=== PATIENT | male | born 1950 | race Caucasian/White ===

== ENCOUNTER 2022-04-11 18:03 | Inpatient (IN) | payer MEDICARE, OTHER ==
[~2022-04-11] VITALS: Ht 193 cm; Wt 118.2 kg
[2022-04-11 18:59] LABS: BASOPHILS # (AUTO) 0.1 X10'3 (0-0.2); BASOPHILS % (AUTO) 0.8 % (0-1); EOSINOPHILS # (AUTO) 0.2 X10'3 (0-0.9); EOSINOPHILS % (AUTO) 1.5 % (0-6); HEMATOCRIT 42.6 % (42.0-52.0); HEMOGLOBIN 14.5 g/dl (14.0-17.9); LYMPHOCYTES # (AUTO) 1.6 X10'3 (1.1-4.8); LYMPHOCYTES % (AUTO) 14.4 % (21-51); MEAN CORPUSCULAR HEMOGLOBIN 29.2 PG (27.0-31.0); MEAN CORPUSCULAR VOLUME 85.9 FL (78-98); MEAN PLATELET VOLUME 9.1 FL (7.4-10.4); MONOCYTES # (AUTO) 0.9 X10'3 (0-0.9); MONOCYTES % (AUTO) 7.8 % (2-12); NEUTROPHILS # (AUTO) 8.5 X10'3 (1.8-7.7); NEUTROPHILS % (AUTO) 75.5 % (42-75); PLATELET COUNT 219 X10'3 (140-440); RED BLOOD COUNT 4.95 X10'6 (4.70-6.10); RED CELL DISTRIBUTION WIDTH 13.6 % (11.5-14.5); WHITE BLOOD COUNT 11.2 X10'3 (4.5-11.0)
[2022-04-11 19:12] LABS: ALANINE AMINOTRANSFERASE 19 U/L (12-78); ALBUMIN 3.1 G/DL (3.4-5.0); ALBUMIN/GLOBULIN RATIO 0.7 (1.1-1.5); ALKALINE PHOSPHATASE 84 IU/L (46-116); ANION GAP 8 (8-16); ASPARTATE AMINO TRANSFERASE 21 U/L (10-37); BILIRUBIN,TOTAL 0.5 MG/DL (0.1-1.0); BLOOD UREA NITROGEN 29 MG/DL (7-18); BUN/CREATININE RATIO 14.7 (5.4-32.0); CALCIUM 8.9 MG/DL (8.5-10.1); CHLORIDE 103 MMOL/L (99-107); CREATININE 1.97 MG/DL (0.60-1.10); GLUCOSE 181 MG/DL (70-104); MAGNESIUM 2.1 MG/DL (1.5-2.4); POTASSIUM 4.1 MMOL/L (3.5-5.1); SODIUM 134 MMOL/L (135-145); TOTAL CARBON DIOXIDE 22.8 MMOL/L (24-32); TOTAL PROTEIN 7.7 G/DL (6.4-8.2); eGFR 34 ML/MIN
--- NOTE | 2022-04-11 20:41 | NUR ---
patient left and came back. See Prior Triage.
[2022-04-12] MEDS ORDERED: normal saline 1000ML IV soln IVB ONE (01:00)
[2022-04-12] MEDS ORDERED: normal saline 1000ml 1,000 ML IV ONE (01:00)
[2022-04-12] MEDS ORDERED: heparin 10,000 units/1 ML INJ IV ONE ×2 (01:05→02:00)
[2022-04-12] MEDS ORDERED: heparin 25,000 UNIT/250ml bag 250 ML IV SCH ×2 (01:05→11:40)
[2022-04-12] MEDS ORDERED: vancomycin/NS 1 GM ADD-VANTAGE 250 ML IV ONE (01:05)
[2022-04-12 01:38] LABS: APTT 31 SECONDS (22-32)
[2022-04-12 01:50] LABS: MAGNESIUM 2.2 MG/DL (1.5-2.4)
[2022-04-12] MEDS ORDERED: heparin 10,000 units/1 ML INJ IV PRN ×2 (02:00→11:40)
[2022-04-12] MEDS: heparin 25,000 UNIT/250ml bag 250 ML IV SCH ×2 (02:26→15:27)
[2022-04-12] MEDS ORDERED: diphenhydrAMINE 25mg capsule PO PRN (05:05)
[2022-04-12] MEDS ORDERED: normal saline 1000ml 1,000 ML IV SCH (05:05)
[2022-04-12] MEDS ORDERED: ondansetron/PF 4mg/2ml inj IV PRN ×2 (05:05→11:40)
[2022-04-12] MEDS ORDERED: ondansetron 4mg rapidly disintigrating tab PO PRN ×2 (05:05→11:40)
[2022-04-12] MEDS ORDERED: HYDROcodone/acetaminophen 5mg/325mg tablet PO PRN ×2 (05:05→11:40)
[2022-04-12] MEDS ORDERED: morphine 2 MG/ML inj. syringe IV PRN ×2 (05:05)
[2022-04-12] MEDS ORDERED: bisacodyl 10mg suppository rectal RC PRN (05:05)
[2022-04-12] MEDS ORDERED: HYDROmorphone inj. 0.5 MG/0.5 ML DISP.SYRIN IV PRN ×2 (05:05→11:40)
[2022-04-12] MEDS ORDERED: diphenhydrAMINE 50 mg/ml inj IV PRN (05:05)
[2022-04-12] MEDS ORDERED: acetaminophen 325mg tablet PO PRN ×4 (05:05→11:40)
[2022-04-12] MEDS ORDERED: magnesium hydroxide 30ml (MOM) UD suspension PO PRN ×2 (05:05→11:40)
[2022-04-12] MEDS ORDERED: acetaminophen 650mg rectal suppository RC PRN ×2 (05:05→11:40)
[2022-04-12] MEDS ORDERED: HYDROcodone/acetaminophen 10/325mg tab PO PRN ×2 (05:05→11:40)
[2022-04-12] MEDS ORDERED: mag hydrox/Alum hydrox/simeth 30ml oral suspension PO PRN ×2 (05:05→11:40)
[2022-04-12] MEDS ORDERED: glucagon, human recombinant 1mg kit SUBCUT PRN (05:10)
[2022-04-12] MEDS ORDERED: insulin Lispro (HumaLOG) vial - multi-dose SQ SCH (05:10)
[2022-04-12] MEDS ORDERED: DEXTROSE 15 GM of carb/4 tabs (each vial/BOTTLE has 4 tablets) PO PRN ×2 (05:10)
[2022-04-12] MEDS ORDERED: dextrose 50%-water 50ml dispensing syringe IV PRN ×2 (05:10)
[2022-04-12] MEDS ORDERED: MESSAGE TO PHARMACY PO ONE (05:10)
[2022-04-12 06:55] LABS: URINE AMPHETAMINE SCREEN NEGATIVE (Neg); URINE BARBITUATE SCREEN NEGATIVE (Neg); URINE BENZODIAZEPINES SCREEN NEGATIVE (Neg); URINE CANNABINOID SCREEN NEGATIVE (Neg); URINE COCAINE SCREEN NEGATIVE (Neg); URINE METHADONE SCREEN NEGATIVE (Neg); URINE OPIATE SCREEN NEGATIVE (Neg); URINE PHENCYCLIDINE SCREEN NEGATIVE (Neg)
[2022-04-12] MEDS ORDERED: pantoprazole 40mg Tablet.DR PO SCH (07:30)
[2022-04-12] MEDS ORDERED: docusate sod 100mg capsule PO SCH ×2 (08:00→20:00)
[2022-04-12] MEDS ORDERED: vancomycin/NS 1 GM ADD-VANTAGE 250 ML IV SCH (08:00)
[2022-04-12] MEDS ORDERED: clindamycin 300mg/D5W 50mL 50 ML IV SCH (08:00)
[2022-04-12] MEDS ORDERED: furosemide 10 MG/1 ML 10ml inj IV SCH (08:00)
[2022-04-12] MEDS ORDERED: clindamycin phosphate inj 300 MG in normal saline 50ml IV soln 48 ML IV SCH ×2 (08:00→14:00)
[2022-04-12] MEDS ORDERED: furosemide 20 MG/2 ML vial IV SCH (08:43)
--- NOTE | 2022-04-12 09:18 | NUR ---
PTT critically high. heparin to be held 120 mins per protocol.
[2022-04-12 09:33] LABS: CREATINE KINASE 257 U/L (39-308); MAGNESIUM 2.1 MG/DL (1.5-2.4); PHOSPHORUS 3.3 MG/DL (2.3-4.5)
[2022-04-12 09:38] LABS: HEMOGLOBIN A1C 6.5 % (4.5-6.2)
[2022-04-12] MEDS ORDERED: magnesium 4gm in 100ml NS 100 ML IV PRN (11:40)
[2022-04-12] MEDS ORDERED: potassium CL 10mEq/100ml bag 100 ML IV PRN (11:40)
[2022-04-12] MEDS ORDERED: magnesium Cl slow-release 64mg tablet PO PRN (11:40)
[2022-04-12] MEDS ORDERED: HYDROmorphone/PF 0.2 MG/ML SYRINGE IV PRN (11:40)
[2022-04-12] MEDS ORDERED: magnesium 2GM in 50ml NS 50 ML IV PRN (11:40)
[2022-04-12] MEDS ORDERED: POTASSIUM BICARB 20meq eff tab 20 MEQ TABLET.EFF PO PRN ×2 (11:40)
[2022-04-12] MEDS: normal saline 1000ml 1,000 ML IV SCH ×2 (11:40→21:40)
[2022-04-12 11:41] LABS: ALANINE AMINOTRANSFERASE 25 U/L (12-78); ALBUMIN 3.1 G/DL (3.4-5.0); ALBUMIN/GLOBULIN RATIO 0.6 (1.1-1.5); ALKALINE PHOSPHATASE 82 IU/L (46-116); ANION GAP 15 (8-16); ASPARTATE AMINO TRANSFERASE 22 U/L (10-37); BILIRUBIN,TOTAL 0.5 MG/DL (0.1-1.0); BLOOD UREA NITROGEN 26 MG/DL (7-18); BUN/CREATININE RATIO 14.7 (5.4-32.0); CALCIUM 8.8 MG/DL (8.5-10.1); CHLORIDE 105 MMOL/L (99-107); CREATININE 1.77 MG/DL (0.60-1.10); GLUCOSE 110 MG/DL (70-104); POTASSIUM 3.9 MMOL/L (3.5-5.1); SODIUM 140 MMOL/L (135-145); TOTAL CARBON DIOXIDE 20.1 MMOL/L (24-32); TOTAL PROTEIN 7.9 G/DL (6.4-8.2); WHITE BLOOD COUNT 8.7 X10'3 (4.5-11.0); eGFR 38 ML/MIN
[2022-04-12 11:43] LABS: BASOPHILS # (AUTO) 0.1 X10'3 (0-0.2); BASOPHILS % (AUTO) 0.8 % (0-1); EOSINOPHILS # (AUTO) 0.2 X10'3 (0-0.9); EOSINOPHILS % (AUTO) 1.8 % (0-6); HEMATOCRIT 42.1 % (42.0-52.0); HEMOGLOBIN 14.6 g/dl (14.0-17.9); LYMPHOCYTES # (AUTO) 1.4 X10'3 (1.1-4.8); LYMPHOCYTES % (AUTO) 15.9 % (21-51); MEAN CORPUSCULAR HEMOGLOBIN 29.6 PG (27.0-31.0); MEAN CORPUSCULAR HGB CONC 34.6 g/dL (33.0-36.5); MEAN CORPUSCULAR VOLUME 85.4 FL (78-98); MEAN PLATELET VOLUME 9.9 FL (7.4-10.4); MONOCYTES # (AUTO) 0.7 X10'3 (0-0.9); MONOCYTES % (AUTO) 7.7 % (2-12); NEUTROPHILS # (AUTO) 6.4 X10'3 (1.8-7.7); NEUTROPHILS % (AUTO) 73.8 % (42-75); PLATELET COUNT 195 X10'3 (140-440); RED BLOOD COUNT 4.93 X10'6 (4.70-6.10); RED CELL DISTRIBUTION WIDTH 13.5 % (11.5-14.5)
--- NOTE | 2022-04-12 12:44 | NUR ---
Spoke to Dr. Dunlap for order clarification. States to continue DVT protocol for heparin gtt, and use the q 8 hour clindamycin order and cancel the q 6 hour order.
--- NOTE | 2022-04-12 12:48 | NUR ---
Pt turning and repositioning himself frequently.
[2022-04-12] MEDS ORDERED: ENAL20TA36 PO (12:59)
[2022-04-12] MEDS ORDERED: GLYB2.5T4 PO (12:59)
[2022-04-12] MEDS ORDERED: CIPR500T5 PO (12:59)
[2022-04-12] MEDS ORDERED: AMLO-708 PO (12:59)
[2022-04-12] MEDS ORDERED: ROSU40TA22 PO (12:59)
[2022-04-12 13:24] LABS: POTASSIUM 4.1 MMOL/L (3.5-5.1)
[2022-04-12] MEDS: clindamycin phosphate inj 300 MG in normal saline 50ml IV soln 48 ML IV SCH (16:00)
[2022-04-12] MEDS ORDERED: lisinopril 20mg tablet PO SCH (20:00)
[2022-04-12] MEDS ORDERED: K and/or MAG REPLACEMENT MC SCH (20:00)
[2022-04-12] MEDS ORDERED: insulin glargine (Lantus) pen - multi-dose SQ SCH (21:00)
[2022-04-12] MEDS ORDERED: atorvastatin 20mg tablet PO SCH (21:00)
[2022-04-12] MEDS ORDERED: temazepam 15mg capsule PO PRN (21:00)
--- NOTE | 2022-04-12 21:49 | NUR ---
aPTT AT 6 HOURS CAME BACK IN THERAPEUTIC RANGE. NO RATE CHANGE REQUIRED FOR HEPARIN DRIP AT THIS TIME.
[2022-04-13] MEDS: clindamycin phosphate inj 300 MG in normal saline 50ml IV soln 48 ML IV SCH (01:21)
[2022-04-13 02:58] VITALS: BP 131/73
[2022-04-13] MEDS ORDERED: vancomycin/NS 1 GM ADD-VANTAGE 250 ML IV SCH (03:00)
[2022-04-13] MEDS ORDERED: amLODIPine 5mg tablet PO SCH (08:00)
[2022-04-15] MEDS ORDERED: VANCOMYCIN LEVEL IV ONE (02:30)
== END 2022-04-13 03:00 | disposition short-term general hospital (02) | DRG 299 ==
LOC: ER 18:04 → ED HOLD 04-12 05:10 → UNDOADMIN 04-12 05:10 → ED HOLD 04-12 11:42 → UNDODISIN 04-13 03:00
PROVIDERS: ADMIT Family Medicine; ATTEND Family Medicine
DX: E11.51 Type 2 diabetes mellitus with diabetic peripheral angiopathy without gangrene (principal); I50.33 Acute on chronic diastolic (congestive) heart failure; L03.116 Cellulitis of left lower limb; I13.0 Hypertensive heart and chronic kidney disease with heart failure and stage 1 through stage 4 chronic kidney disease, or unspecified chronic kidney disease; N17.9 Acute kidney failure, unspecified; E11.621 Type 2 diabetes mellitus with foot ulcer; E11.42 Type 2 diabetes mellitus with diabetic polyneuropathy; S80.822A Blister (nonthermal), left lower leg, initial encounter; E11.22 Type 2 diabetes mellitus with diabetic chronic kidney disease; Z20.822 Contact with and (suspected) exposure to COVID-19; X58.XXXA Exposure to other specified factors, initial encounter; N18.9 Chronic kidney disease, unspecified; E11.65 Type 2 diabetes mellitus with hyperglycemia; E78.5 Hyperlipidemia, unspecified; I70.202 Unspecified atherosclerosis of native arteries of extremities, left leg; L97.529 Non-pressure chronic ulcer of other part of left foot with unspecified severity; Z89.511 Acquired absence of right leg below knee; Z88.0 Allergy status to penicillin; Y93.89 Activity, other specified; Y99.8 Other external cause status; Y92.89 Other specified places as the place of occurrence of the external cause
CPT/HCPCS: 36415; 71045; 73700; 80053; 80305; 82550; 82948; 83036; 83605; 83735; 83880; 84100; 84132; 84145; 84443; 84484; 85025; 85610; 85730; 87040; 87635; 92508; 92616; 93005; 93306; 93922; 93926; 99285; A4649; A6196; A6209; A6250; A6446; A6449; G0378; J1644; J1815; J1940; J3370; J3490; J7030; J7040

== ENCOUNTER 2022-06-04 11:00 | Emergency (ER) | payer MEDICARE, MEDICAID ==
[~2022-06-04] VITALS: Ht 193 cm; Wt 113.6 kg
[~2022-06-04 11:00] MED LIST: AMLO-708 PO; ENAL20TA36 PO; GLYB2.5T4 PO; ROSU40TA22 PO
[2022-06-04] MEDS ORDERED: vancomycin/NS 1 GM ADD-VANTAGE 250 ML IV ONE (11:05)
[2022-06-04 11:11] VITALS: BP 125/53
[2022-06-04 11:28] LABS: BASOPHILS # (AUTO) 0.1 X10'3 (0-0.2); BASOPHILS % (AUTO) 1.5 % (0-1); EOSINOPHILS # (AUTO) 0.3 X10'3 (0-0.9); EOSINOPHILS % (AUTO) 3.8 % (0-6); HEMATOCRIT 38.1 % (42.0-52.0); HEMOGLOBIN 12.9 g/dl (14.0-17.9); LYMPHOCYTES # (AUTO) 1.7 X10'3 (1.1-4.8); LYMPHOCYTES % (AUTO) 20.1 % (21-51); MEAN CORPUSCULAR HGB CONC 33.9 g/dL (33.0-36.5); MEAN CORPUSCULAR VOLUME 85.6 FL (78-98); MEAN PLATELET VOLUME 7.7 FL (7.4-10.4); MONOCYTES # (AUTO) 0.6 X10'3 (0-0.9); MONOCYTES % (AUTO) 7.3 % (2-12); NEUTROPHILS # (AUTO) 5.7 X10'3 (1.8-7.7); NEUTROPHILS % (AUTO) 67.3 % (42-75); PLATELET COUNT 231 X10'3 (140-440); RED BLOOD COUNT 4.46 X10'6 (4.70-6.10); RED CELL DISTRIBUTION WIDTH 13.9 % (11.5-14.5); WHITE BLOOD COUNT 8.5 X10'3 (4.5-11.0)
[2022-06-04 11:51] LABS: ALANINE AMINOTRANSFERASE 47 U/L (12-78); ALBUMIN 3.2 G/DL (3.4-5.0); ALBUMIN/GLOBULIN RATIO 0.7 (1.1-1.5); ALKALINE PHOSPHATASE 91 IU/L (46-116); ANION GAP 9 (8-16); ASPARTATE AMINO TRANSFERASE 31 U/L (10-37); BILIRUBIN,TOTAL 0.4 MG/DL (0.1-1.0); BLOOD UREA NITROGEN 27 MG/DL (7-18); CALCIUM 8.8 MG/DL (8.5-10.1); CHLORIDE 103 MMOL/L (99-107); GLUCOSE 129 MG/DL (70-104); MAGNESIUM 2.3 MG/DL (1.5-2.4); POTASSIUM 5.1 MMOL/L (3.5-5.1); SODIUM 137 MMOL/L (135-145); TOTAL CARBON DIOXIDE 25.2 MMOL/L (24-32); TOTAL PROTEIN 7.9 G/DL (6.4-8.2); eGFR 37 ML/MIN
== END 2022-06-04 15:12 | disposition home or self-care (01) ==
LOC: ER 11:00
DX: E11.621 Type 2 diabetes mellitus with foot ulcer (principal); L97.529 Non-pressure chronic ulcer of other part of left foot with unspecified severity; N18.9 Chronic kidney disease, unspecified; E11.40 Type 2 diabetes mellitus with diabetic neuropathy, unspecified; Z88.0 Allergy status to penicillin; Z79.899 Other long term (current) drug therapy
CPT/HCPCS: 36415; 80053; 83605; 83735; 84145; 85025; 87040; 96365; 99284; J3370